=== PATIENT | female | born 1980 | race Caucasian/White ===

== ENCOUNTER 2019-02-02 19:59 | Inpatient (IN) | payer BC ==
[2019-02-02] MEDS ORDERED: Lactated Ringer's 1,000 ML IV ONE ×2 (21:06→21:07)
[2019-02-02] MEDS ORDERED: Oxytocin 30 UNIT in NS 500 ml 30 UNITS/500 ML BAG IV ONE (21:08)
[2019-02-02] MEDS ORDERED: OXYTOCIN/0.9 % NS 20 UNIT/1,000 ML BAG IV ONE (21:08)
[2019-02-02 21:17] VITALS: BMI 28.5
[2019-02-02 21:58] LABS: BASO % 0.2 % (0.0-2.0); EOS % 0.2 % (0.0-4.0); HEMOGLOBIN 12.3 g/dL (12.0-16.0); LYMPH # 1.2 K/uL (1.0-4.3); LYMPH % 12.4 % (20.0-40.0); MEAN CELL VOLUME 95.7 fl (81.0-99.0); MEAN CORPUSCULAR HEMOGLOBIN 31.9 pg (27.0-31.0); MEAN CORPUSCULAR HGB CONC 33.3 g/dL (33.0-37.0); MEAN PLATELET VOLUME 8.4 fl (7.2-11.7); MONO # 0.4 K/uL (0.0-0.8); MONO % 4.1 % (0.0-10.0); NEUT # 7.8 K/uL (1.8-7.0); NEUT % 83.1 % (50.0-75.0); NRBC % 0.1 % (0.0-0.0); RBC 3.86 Mil/uL (3.80-5.20); RED CELL DISTRIBUTION WIDTH 12.9 % (11.5-14.5); WHITE BLOOD COUNT 9.4 K/uL (4.8-10.8)
[2019-02-02 22:11] LABS: ALB/GLOB RATIO 1.1 (1.0-2.1); ALT/SGPT 79 U/L (9-52); AST/SGOT 54 U/L (14-36); BLOOD UREA NITROGEN 8 mg/dl (7-17); CALCIUM 9.6 mg/dL (8.4-10.2); GFR NON-AFRICAN AMERICAN > 60
--- NOTE | 2019-02-02 22:37 | OBADHP ---
Datetime: 02/02/2019 21:12 IP Chief Complaint Other: Elevated bile acids Admit Comment, IP Provider: Keo: [id number] Pt is a 38 yo 39.6 wks gest BRENDA 02/03/19 based on LMP of 05/17/18 and 13 week U/S done 07/29/18. Pt is here for an induction due to cholestasis, pruritis of arms hands legs and feet. Reports intermi ttent contractions. Denies vaginal bleeding or LOF. Reports good movements. Denies fevers, chil ls, headaches, blurry vision, chest pain, dyspnea, N/V/D/C or dysuria. ROS: Negative except for stated above in HPI. PNP: Dr. Yang PMH: Denies Meds: PNV Allergies:NKDA OB: denies complications, no abortions or miscarraiges, Denies DM or HTN in pregnacy, denies hx of STD's, pap NILM 08/18/19 PSH: Denies FH: Mom and Dad- HTN Social: Denies tobacco, EtOH or drug use Labs: GC/CHL neg, O +, AB neg, RPR- NR, HepBsag neg, HIV neg, TDAP 12/08/18 PE: GEN:NAD HEENT: NCAT, EOMI Heart: +S1S2, RRR Lungs: CTA, no wheezing, rales or rhonchi Abdomen: Soft, non-tender, gravid. +BS heard throughout Extrem: no edema, no exoriations or erythema Assessment: 38 yo 39.6 wks gest BRENDA 02/03/19 based on LMP of 05/17/18 and 13 week U/S done . Pt is here for an induction due to cholestasis Plan: -Admit to L _ D -Initiate Labor induction protocol -Maternal montioring VS - monitoring 150's, moderate variability, 15x 15 accelerations, no decels -Cervidil -IVF's, Pitocin -Benadryl -CBC, CMP, type and screen Discussed with Dr. Jai Pedersen , PGY-[address] Vergara: I have evaluated patient independently and I agree with the above. Extremities - PN: Normal Abdomen - PN: Normal Lungs - PN: Normal Heart - PN: Normal Neurologic - PN: Normal HEENT - PN: Normal General - PN: Normal FHR - Baseline A Provider: 150 Membranes, Provider: Intact Comments, ACOG Physical Exam: GEN:NAD HEENT: NCAT, EOMI Heart: +S1S2, RRR Lungs: CTA, no wheezing, rales or rhonchi Abdomen: Soft, non-tender, gravid. +BS heard throughout Extrem: no edema, no exoriations noted Bimanual: fingertip, thick and high Pool Provider: Negative IP Hx Assessment: The History has been Reviewed and is Current Vital Signs Provider: Reviewed; Within Normal Limits IP Chief Complaint: Maternal discomfort NICHD Variability Prov Fetus A: Moderate 6-25bpm NICHD Accel Fetus A IP Provider: 15X15 FHR Category Provider Fetus A: Category I NICHD Decel Fetus A IP Provider: None Dilatation, Provider: <1 Genitourinary Exam: Normal EGA AdmitDate IP: 39.6 IP Adm Impression: Term, intrauterine IP Admit Plan: Admit to unit; Initiate labor induction protocol
[2019-02-04] MEDS ORDERED: Nalbuphine 20 mg/ml Inj (10 ml) IVP ONE (01:56)
[2019-02-04] MEDS ORDERED: Nalbuphine HCL 10 mg/ml Ampule IVP ONE ×2 (02:15→17:23)
[2019-02-04] MEDS ORDERED: Nalbuphine HCL 10 mg/ml Ampule ONE ×2 (02:17→22:35)
[2019-02-04] MEDS: Lactated Ringer's 1,000 ML IV SCH ×2 (11:09→20:30)
[2019-02-04] MEDS ORDERED: Nalbuphine HCL 10 mg/ml Ampule IVP PRN (22:22)
[2019-02-04] MEDS ORDERED: Lactated Ringer's 1,000 ML IV SCH ×2 (23:30)
[2019-02-05] MEDS ORDERED: Fentanyl/Bupivacaine HCl 250 ML EPI ONE (00:29)
[2019-02-05] MEDS: Lactated Ringer's 1,000 ML IV SCH (01:30)
[2019-02-05] MEDS ORDERED: Oxytocin 30 UNIT in NS 500 ml 30 UNITS/500 ML BAG IV ONE ×2 (04:26→05:53)
[2019-02-05] MEDS ORDERED: OXYTOCIN/0.9 % NS 20 UNIT/1,000 ML BAG IV SCH (04:30)
[2019-02-05] MEDS: Lactated Ringer's 1,000 ML IV ONE ×2 (09:00→15:00)
--- NOTE | 2019-02-05 09:58 | OBPN ---
Datetime: 02/05/2019 09:55 IP Procedures: Sterile Vag Exam IP Progress Plan: Continue present management Contraction Comments Provider: q5-6min FHR - Baseline A Provider: 120s-130s IP Progress Note Comment: Patient resting comfortably status post epidural. heart tracing cat egory 1. Plan to continue current management. I discussed plan with patient and all patient questio ns answered. NICHD Accel Fetus A IP Provider: 15X15 FHR Category Provider Fetus A: Category I NICHD Variability Prov Fetus A: Moderate 6-25bpm Dilatation, Provider: 4 Effacement, Provider: 100 Station, Provider: -1 NICHD Decel Fetus A IP Provider: None Datetime: 02/04/2019 14:17 IP Informed Consent Obtain: Induction of Labor Membranes, Provider: Intact Gestation - Est Wks by US: 40.1 Presentation-Admit: Vertex Vital Signs Provider: Reviewed; Within Normal Limits Datetime: 02/04/2019 09:15 IP Fetus A Comments: Patient had one late deceleration lasting <2 min Datetime: 02/03/2019 11:00 IP Progress Impression: Reassuring heart rate Datetime: 02/02/2019 21:12 Pool Provider: Negative
--- NOTE | 2019-02-05 12:06 | OBPN ---
Datetime: 02/05/2019 12:00 IP Procedures: Sterile Vag Exam IP Progress Plan: Continue present management Contraction Comments Provider: q2-5min FHR - Baseline A Provider: 140s-150s IP Fetus A Comments: isolated variable decel with good recovery IP Progress Note Comment: Patient without complaints. Labor progressing well. heart tracing category 1. Plan to continue current management. Discussed plan with patient and all patient questi ons answered. Vital Signs Provider: Reviewed; Within Normal Limits NICHD Accel Fetus A IP Provider: 15X15 NICHD Variability Prov Fetus A: Moderate 6-25bpm Dilatation, Provider: 8 Effacement, Provider: 100 Station, Provider: 0 NICHD Decel Fetus A IP Provider: Variable
[2019-02-05] MEDS ORDERED: Lidocaine 1% Inj (20ml) ONE (12:12)
[2019-02-05] MEDS ORDERED: Lactated Ringer's 1,000 ML IV SCH (18:10)
[2019-02-05] MEDS ORDERED: Phenylephrine 10 mg/ml Inj ONE (18:50)
[2019-02-05] MEDS ORDERED: Lidocaine 2% PF (10 ml) Amp ONE (18:50)
[2019-02-05] MEDS ORDERED: ceFAZolin 2 GM in Sodium Chloride 0.9% 100 ML IVPB STA (19:10)
[2019-02-05] MEDS ORDERED: Midazolam 2 MG/2 ML VIAL ONE ×2 (20:08→20:22)
[2019-02-05] MEDS ORDERED: Morphine 5 mg/10 ml preservative-free Inj(Duramorph) ONE (20:18)
[2019-02-05] MEDS ORDERED: Oxycodone/Acetaminophen 5/325 mg Tab PO PRN ×2 (20:39)
[2019-02-05] MEDS ORDERED: Lactated Ringer's 1,000 ML IV ONE (20:40)
[2019-02-05] MEDS ORDERED: DiphenhydrAMINE 50 mg/ml Inj IVP PRN (20:46)
[2019-02-05] MEDS ORDERED: Simethicone 80 mg Chewtab PO SCH (22:00)
[2019-02-06] MEDS ORDERED: Lactated Ringer's 1,000 ML IV ONE (00:54)
[2019-02-06] MEDS ORDERED: DiphenhydrAMINE 50 mg/ml Inj IVP PRN (00:54)
[2019-02-06] MEDS: Simethicone 80 mg Chewtab PO SCH ×4 (04:56→21:43)
--- NOTE | 2019-02-06 08:12 | OBPN ---
Datetime: 02/05/2019 19:07 IP Progress Impression: Arrest of dilatation/descent IP Informed Consent Obtain: Section Delivery; Risks, Benefits and Alternatives Discussed IP Procedures: Sterile Vag Exam IP Progress Plan: Deliver- Section IP Progress Note Comment: Patient fully dilated and pushing for 2.5-3 hours without progress. heart tracing category 2. Discussed with patient options and recommended due to arrest of descent. Discussed with patient the risk, benefits, alternatives of . Patient consented f or procedure. All patient questions answered.
--- NOTE | 2019-02-06 08:12 | OBDS ---
DELIVERY PERSONNEL Delivery Doctor: Judy Oviedo MD Scrub Nurse: Kassandra Juan Circular Distributor: Jack Waters RN Anesthesiologist: Rajesh Gomez MD Resident: Doreen Pedersen MATERNAL INFORMATION Delivery Anesthesia: Epidural Medications in Delivery: ancef 2 grams, pitocin 30 units/500 ml Estimated Blood Loss (ml): 800 Placenta Cultured: No Maternal Complications: None Provider Comments: Primary low flap transverse section Via Pfannenstiel incision. Patient delivered viable infant with Apgars of 9 and 9 at 1 and 5 minutes respectively. Normal ut erus, normal tubes and ovaries bilaterally. OP presentation. Estimated blood loss 800 cc Fluids 1500 cc lactated Ringer's Urine output 200 cc No complications Patient tolerated procedure well LABOR SUMMARY EDC: 02/03/2019 00:00 No. Babies in Womb: 1 Attempted: No Labor Anesthesia: Epidural LABOR INFORMATION Reason for Induction: Other Reason for Induction Other: cholestasis Complete Dilatation: 02/05/2019 16:30 Cervical Ripening Agents: Cervidil Oxytocin: Induction Group B Beta Strep: Negative Antibiotics # of Doses: 0 Antibiotics Time of Last Dose: n/a Steroids Given: None Reason Steroids Not Administered: Not Applicable MEMBRANES Membranes Rupture Method: Artificial Rupture of Membranes: 02/05/2019 06:40 Length of Rupture (hrs): 13.15 Amniotic Fluid Color: Light Meconium Amniotic Fluid Amount: Moderate Amniotic Fluid Odor: None STAGES OF LABOR Stage 2 hrs: 3 Stage 2 min: 19 Stage 3 hrs: 0 Stage 3 min: 1 CSECTION DELIVERY Primary Indication: Arrest of Descent (Annotations: Data stored by N on behalf of user) CSection Urgency: Non Elective CSection Incidence: Primary Labor: Labor Elective: Nonelective CSection Incision: Lower Uterine Transverse BABY A INFORMATION Delivery Date/Time: 02/05/2019 19:49 Method of Delivery: Born in Route : No : N/A Forceps: N/A Vacuum Extraction: N/A Shoulder Dystocia : No SHOULDER DYSTOCIA BABY A Infant Delivery Date/Time: 02/05/2019 19:49 PRESENTATION/POSITION BABY A Presentation: Cephalic Cephalic Presentation: Vertex Breech Presentation: N/A PLACENTA INFORMATION BABY A Placenta Delivery Time : 02/05/2019 19:50 Placenta Method of Delivery: Manual Removal Placenta Status: Delivered SCORES BABY A Heart Rate 1 min: >100 bpm Resp Effort 1 min: Good Cry Reflex Irritability 1 min: Cough or Sneeze or Pulls Away Muscle Tone 1 min: Active Motion Color 1 min: Body Earth, Extremities Blue Resuscitation Effort 1 min: Tactile Stimulation SCORE 1 MIN: 9 Heart Rate 5 min: >100 bpm Resp Effort 5 min: Good Cry Reflex Irritability 5 min: Cough or Sneeze or Pulls Away Muscle Tone 5 min: Active Motion Color 5 min: Body Earth, Extremities Blue Resuscitation Effort 5 min: Tactile Stimulation SCORE 5 MIN: 9 INFORMATION BABY A Gestational Age at Delivery: 40.2 Gestational Status: Post-term Infant Outcome : Liveborn Infant Condition : Stable Sex: Male IDENTIFICATION/MEDS BABY A ID Band Number: [id number] ID Band Location: Left Leg; Left Arm WEIGHT/LENGTH BABY A Infant Birthweight (gms): 3660 Weight (lb): 8 Weight (oz): 1 CORD INFORMATION BABY A No. Cord Vessels: 3 Nuchal Cord : N/A Cord Blood Taken: Yes Infant Suction: Mouth ASSESSMENT BABY A Complications: Multiple Late Decels Physical Findings at Delivery: Caput Succedaneum Infant Respirations: Appears Normal Nipping Machine Operator/ALS Called : No Care By: Xiomara Friedman RN Transferred To: [facility]
[2019-02-06 08:54] LABS: HEMOGLOBIN 10.2 g/dL (12.0-16.0); MEAN CELL VOLUME 97.2 fl (81.0-99.0); MEAN CORPUSCULAR HGB CONC 33.9 g/dL (33.0-37.0); RBC 3.11 Mil/uL (3.80-5.20); RED CELL DISTRIBUTION WIDTH 12.9 % (11.5-14.5); WHITE BLOOD COUNT 11.7 K/uL (4.8-10.8)
[2019-02-06] MEDS ORDERED: Multivitamin With Minerals Tab PO SCH (09:00)
[2019-02-06] MEDS: Multivitamin With Minerals Tab PO SCH (09:06)
[2019-02-06] MEDS: Oxycodone/Acetaminophen 5/325 mg Tab PO PRN ×3 (09:07→21:43)
[2019-02-07] MEDS: Oxycodone/Acetaminophen 5/325 mg Tab PO PRN ×3 (04:08→21:34)
[2019-02-07] MEDS: Simethicone 80 mg Chewtab PO SCH ×5 (04:09→21:34)
[2019-02-07] MEDS: Multivitamin With Minerals Tab PO SCH (08:23)
--- NOTE | 2019-02-07 08:29 | OBPPN ---
Datetime: 02/07/2019 08:19 PP Pain Prov: Within normal limits PP Nausea Prov: Denies PP Flatus Prov: Yes PP BM Prov: No PP Breasts Prov: Normal PP Heart Prov: Normal PP Lungs Prov: Normal PP Abdomen/Uterus Prov: Normal PP Lochia Prov: Normal PP Vulva/Perineum Prov: Normal PP CVA Tenderness Prov: Normal PP Extremities Prov: Normal PP Progress Prov: Normal PP Impression Prov: Normal progression PP Plan Prov: Continue present management PP Progress Note Prov: She feels fine A; S/P C/.S day 2 PLAN cont postop care Vital Signs Provider PP: Reviewed; Within Normal Limits
[2019-02-07] MEDS ORDERED: Bisacodyl 5mg EC Tab PO SCH (14:15)
[2019-02-08] MEDS: Simethicone 80 mg Chewtab PO SCH ×2 (04:05→09:16)
[2019-02-08] MEDS: Multivitamin With Minerals Tab PO SCH (08:33)
[2019-02-08 10:55] VITALS: BP 124/80; PULSE 108; RESP 20
[2019-02-08 18:06] VITALS: TEMP 98; O2SAT 96
--- NOTE | 2019-02-08 20:06 | OBDCSUM ---
Datetime: 02/08/2019 11:53 Discharged to, Provider: Home Follow up at, Provider: Dr. valle Disch Instr Activity: Normal activity Disch Instr Diet: Regular Discharge Instructions, Provider: Routine instructions given Discharge Diagnosis, Provider: Term Delivered Discharge Time: 02/08/2019 12:00 Follow up in weeks, Provider: 1 week Disch Referrals: None Contraception discussed, Prov: Yes Disch Activity Restrictions: No lifting; No sexual activity; Nothing in vagina - [place], tampon s, douche Contraception after Delivery: Undecided
--- NOTE | 2019-02-08 20:06 | OBPPN ---
Datetime: 02/08/2019 20:02 PP Pain Prov: Within normal limits PP Nausea Prov: Denies PP Flatus Prov: Yes PP BM Prov: Yes PP Breasts Prov: Normal PP Heart Prov: Normal PP Lungs Prov: Normal PP Abdomen/Uterus Prov: Normal PP Lochia Prov: Normal PP Vulva/Perineum Prov: Normal PP CVA Tenderness Prov: Normal PP Extremities Prov: Normal PP C/S Incision Prov: Normal PP Progress Prov: Normal PP Comments Phys Exam Prov: Abdomen soft, nontender, nondistended Uterus firm, below umbilicus Incision clean, dry, intact No deep calf tenderness bilaterally PP Impression Prov: Normal progression PP Plan Prov: Continue present management; Discharge PP Progress Note Prov: Postop day #3 status post , patient recovering well Patient discharged home with postoperative and instructions Patient will follow-up in office in 1 week for incision check Discussed plan with patient and all patient questions answered. IP PP Procedures: None Vital Signs Provider PP: Reviewed; Within Normal Limits
== END 2019-02-08 13:05 | disposition home or self-care (01) | DRG 786 ==
LOC: H.EROB2 19:59 → H.L&D 21:06 → H.OB/GYN 02-06 00:05
PROVIDERS: ADMIT Obstetrics & Gynecology; ATTEND Obstetrics & Gynecology
PROC: 4A1HXCZ Monitoring of Products of Conception, Cardiac Rate, External Approach (ICD-10-PCS; 2019-02-02)
PROC: 10D00Z1 Extraction of Products of Conception, Low, Open Approach (ICD-10-PCS; principal; 2019-02-06)
DX: O26.62 Liver and biliary tract disorders in childbirth (principal); K83.1 Obstruction of bile duct; O62.1 Secondary uterine inertia; O76 Abnormality in fetal heart rate and rhythm complicating labor and delivery; Z37.0 Single live birth; O48.0 Post-term pregnancy; Z3A.40 40 weeks gestation of pregnancy